=== PATIENT | male | born 1950 | race Two or more races ===

== ENCOUNTER 2018-11-28 21:39 | Inpatient (IN) | payer OTHER ==
[~2018-11-28] VITALS: Ht 180.3 cm; Wt 63.6 kg
[2018-11-29] MEDS ORDERED: SODIUM CHLORIDE 0.9% 1,000 ML IV ONE ×2 (01:45→03:30)
[2018-11-29] MEDS ORDERED: CIPROFLOXACIN 400MG/200ML 200 ML IV ONE (01:45)
[2018-11-29 02:13] LABS: Urine Bacteria MANY /hpf (None Seen); Urine Blood 2+ /uL (Negative); Urine Specific Gravity 1.007 (1.001-1.035); Urine WBC 130 /hpf (0 - 3)
[2018-11-29 02:57] LABS: Basophils # (auto) 0 uL; Basophils % (auto) 0.2 % (0.0-2.0); Eosinophils # (auto) 0 uL; Eosinophils % (auto) 0.1 % (0.0-7.0); Hematocrit 29.2 % (41.0-53.0); Hemoglobin 9.9 g/dL (13.5-17.5); Lymphocytes # (auto) 0.4 uL; Lymphocytes % (auto) 8.4 % (10.0-50.0); Mean Corpuscular Hemoglobin 32.9 pg (28.0-32.0); Mean Corpuscular Hgb Conc. 34.1 g/dL (32.0-36.0); Mean Corpuscular Volume 96.7 fL (80.0-100.0); Monocytes # (auto) 0.1 uL; Monocytes % (auto) 2.1 % (0.0-12.0); Neutrophils # (auto) 3.9 uL; Neutrophils % (auto) 89.2 % (37.0-80.0); Platelet Count (auto) 106 10^3/uL (140-450); Red Blood Cells 3.02 10^6/uL (4.5-5.90); Red Cell Distribution Width 16.2 % (11.8-14.3); White Blood Cell 4.3 10^3/uL (4.4-10.8)
[2018-11-29 03:08] LABS: Alanine Aminotransferase 15 U/L (16-61); Albumin 2.6 g/dL (3.4-5.0); Anion Gap 15 (5-15); Aspartate Aminotransferase 26 U/L (15-37); BUN/Creatinine Ratio 13.2; Calcium 7.4 mg/dL (8.5-10.1); Carbon Dioxide 17 mmol/L (21-32); Chloride 104 mmol/L (98-107); GFR African American 8 mL/min; GFR Non-African American 7 mL/min; Glucose 91 mg/dL (74-106); Sodium 136 mmol/L (136-145)
[2018-11-29 03:10] LABS: INR 1.24 (0.9-1.15); Partial Thromboplastin Time 32.7 sec (23.78-33.04); Prothrombin Time 13.1 sec (9.27-12.13)
[2018-11-29 03:23] LABS: Bilirubin, Total 0.6 mg/dL (0.2-1.0); Total Protein 5.8 g/dL (6.4-8.2)
[2018-11-29 03:26] LABS: Potassium 6.5 mmol/L (3.5-5.1)
[2018-11-29 03:27] LABS: Blood Urea Nitrogen 113 mg/dL (7-18)
[2018-11-29] MEDS ORDERED: SODIUM BICARBONATE 8.4 % INJ 50ML VIAL IV ONE (03:45)
[2018-11-29] MEDS ORDERED: DEXTROSE (50%) 50ML SYRG IV ONE (03:45)
[2018-11-29] MEDS ORDERED: InsuLIN REG 1unit/0.01ml Soln (100units/ml) IV ONE ×2 (03:45→04:45)
[2018-11-29] MEDS ORDERED: CALCIUM GLUC 4.65meq/50ml D5AE 50 ML IV ONE (03:45)
[2018-11-29] MEDS ORDERED: SODIUM POLYSTYRENE SULF 15GM/60ml SUSP or POWDER PO ONE (03:45)
[2018-11-29] MEDS: SODIUM CHLORIDE 0.9% 1,000 ML IV SCH ×3 (04:00→06:58)
[2018-11-29] MEDS ORDERED: ALBUMIN 5% 250 ML IV ONE (04:15)
[2018-11-29] MEDS ORDERED: NITROGLYCERIN 0.4 MG SL TAB SL PRN (04:15)
[2018-11-29] MEDS ORDERED: ACETAMINOPHEN 325 MG TAB PO PRN (04:15)
[2018-11-29] MEDS ORDERED: MORPHINE SULFATE 4 MG/ML SYR/VIAL IV PRN (04:15)
[2018-11-29] MEDS ORDERED: ONDANSETRON HCL 4 MG/2 ML VIAL IV PRN (04:15)
[2018-11-29] MEDS ORDERED: HYDROcodone-ACET 5/325MG TAB PO PRN (04:15)
[2018-11-29 04:35] LABS: Alkaline Phosphatase 3564 U/L (45-117)
[2018-11-29] MEDS: LEVOFLOXACIN 250MG 50 ML IV SCH (05:24)
[2018-11-29] MEDS ORDERED: InsuLIN REG 1unit/0.01ml Soln (100units/ml) ONE (05:57)
[2018-11-29 06:38] LABS: Lactic Acid w/Reflex 3.6 mmol/L (0.4-2.0)
[2018-11-29] MEDS: PANTOPRAZOLE 40 MG TAB PO SCH (07:20)
[2018-11-29 20:00] LABS: BUN/Creatinine Ratio 21.6; Potassium 4.4 mmol/L (3.5-5.1)
[2018-11-29 22:28] LABS: Urine Bacteria FEW /hpf (None Seen); Urine Blood 2+ /uL (Negative); Urine Specific Gravity 1.008 (1.001-1.035); Urine WBC 33 /hpf (0 - 3)
[2018-11-29 22:36] LABS: Protein, Urine 19.1 mg/dL (0.0-11.9)
[2018-11-30 05:34] LABS: Basophils # (auto) 0 uL; Basophils % (auto) 0.2 % (0.0-2.0); Eosinophils # (auto) 0.2 uL; Eosinophils % (auto) 1.1 % (0.0-7.0); Hematocrit 25.8 % (41.0-53.0); Hemoglobin 8.8 g/dL (13.5-17.5); Lymphocytes % (auto) 6.6 % (10.0-50.0); Mean Corpuscular Hgb Conc. 34.1 g/dL (32.0-36.0); Mean Corpuscular Volume 96.9 fL (80.0-100.0); Monocytes # (auto) 0.5 uL; Monocytes % (auto) 3.3 % (0.0-12.0); Neutrophils % (auto) 88.8 % (37.0-80.0); Platelet Count (auto) 98 10^3/uL (140-450); Red Blood Cells 2.66 10^6/uL (4.5-5.90); Red Cell Distribution Width 16.6 % (11.8-14.3); White Blood Cell 15.8 10^3/uL (4.4-10.8)
[2018-11-30 05:51] LABS: Albumin 2.1 g/dL (3.4-5.0); Calcium 7.1 mg/dL (8.5-10.1); Potassium 3.6 mmol/L (3.5-5.1)
[2018-11-30 06:06] LABS: BUN/Creatinine Ratio 29.1; Bilirubin, Total 0.5 mg/dL (0.2-1.0); Phosphorus 3.2 mg/dL (2.5-4.90); Total Protein 4.7 g/dL (6.4-8.2); Uric Acid 12.4 mg/dL (3.5-7.2)
[2018-11-30] MEDS: PANTOPRAZOLE 40 MG TAB PO SCH (06:29)
[2018-11-30] MEDS: SOD CHL 0.45% 1,000 ML IV SCH (11:39)
--- NOTE | 2018-11-30 12:52 | NUR ---
Nutrition Consult/assessment Notes please see attached link for complete assessment Est. Needs based on IBW (78 kg): 9762-2180 kcal (25-30 kcal/kgIBW), 78-85 gms pro (1.0-1.1 gms/kgBW d/t elev RFT severe hypoalb). Will continue to monitor pertinent labs and reassess nutrient needs prn Addendum: 11/30/18 at [address] Amended: Links added.
[2018-11-30] MEDS ORDERED: cefTRIAXone 1GM/50ML D5W 50 ML IV ONE (13:30)
--- NOTE | 2018-11-30 19:29 | NUR ---
Change of shift given to professor of anthropology RN. No distress noted.
--- NOTE | 2018-11-30 19:30 | NUR ---
Opening Shift Note Assumed care of patient, awake and alert. No S/S of distress/SOB or pain. Instructed on POC and to call for assist PRN, will continue to monitor for changes Q1hr and PRN.
[2018-11-30 20:00] VITALS: BP 122/76
[2018-11-30 22:00] VITALS: BP 122/76
[2018-12-01] MEDS: LEVOFLOXACIN 250MG 50 ML IV SCH (04:38)
[2018-12-01] MEDS: SOD CHL 0.45% 1,000 ML IV SCH ×3 (04:38→16:45)
[2018-12-01 05:00] VITALS: BP 128/75
[2018-12-01 06:27] LABS: Basophils # (auto) 0 uL; Basophils % (auto) 0.2 % (0.0-2.0); Eosinophils # (auto) 0.1 uL; Eosinophils % (auto) 0.5 % (0.0-7.0); Hematocrit 29.8 % (41.0-53.0); Hemoglobin 9.9 g/dL (13.5-17.5); Lymphocytes # (auto) 1.6 uL; Lymphocytes % (auto) 5.8 % (10.0-50.0); Mean Corpuscular Hemoglobin 31.9 pg (28.0-32.0); Mean Corpuscular Hgb Conc. 33.2 g/dL (32.0-36.0); Monocytes # (auto) 1.1 uL; Monocytes % (auto) 4.1 % (0.0-12.0); Neutrophils # (auto) 24.3 uL; Neutrophils % (auto) 89.4 % (37.0-80.0); Platelet Count (auto) 110 10^3/uL (140-450); Red Cell Distribution Width 16.4 % (11.8-14.3); White Blood Cell 27.2 10^3/uL (4.4-10.8)
[2018-12-01 06:51] LABS: Calcium 6.8 mg/dL (8.5-10.1); Potassium 3.1 mmol/L (3.5-5.1)
[2018-12-01 06:54] LABS: BUN/Creatinine Ratio 25.6
[2018-12-01] MEDS: PANTOPRAZOLE 40 MG TAB PO SCH (07:00)
[2018-12-01 07:08] LABS: Bilirubin, Total 0.5 mg/dL (0.2-1.0); Total Protein 5.1 g/dL (6.4-8.2)
--- NOTE | 2018-12-01 07:08 | NUR ---
Opening Shift Note Assumed care of patient, awake and alert. No S/S of distress/SOB or pain. Instructed on POC and to call for assist PRN, will continue to monitor for changes Q1hr and PRN. Patient is asleep.
[2018-12-01 07:55] VITALS: BP 133/77
--- NOTE | 2018-12-01 08:35 | NUR ---
Urologist Dr. Miky smart STAT.
--- NOTE | 2018-12-01 08:38 | NUR ---
SEVERE BLADDER PAIN 0802: Patient complained of severe abdominal pain. Assessment completed. Patient noted to have a visibly distended bladder. Patient stated that is where his pain is located. No drainage noted in purcell catheter. 0810: Bladder scan performed. >999 mL of fluid noted. 0818: Reattempted to adjust catheter. Unable to obtain drainage. Catheter flushed. No obstruction felt, purcell flushed freely. wave guide assembler notified. 0832: Dr. Miky smart. Per , remove current purcell catheter (12 fr) and insert new purcell catheter 18 fr. May insert coude catheter if needed. 0838: New purcell catheter successfully placed. 1300 mL of clear yellow urine.
[2018-12-01] MEDS: DOCUSATE SOD 100 MG CAP PO SCH ×2 (09:39→21:52)
[2018-12-01] MEDS: cefTRIAXone 1GM/50ML D5W 50 ML IV SCH (09:39)
[2018-12-01 13:19] VITALS: BP 142/77
[2018-12-01] MEDS ORDERED: POTASSIUM CHL 20 Meq TABLET PO ONE (13:30)
--- NOTE | 2018-12-01 14:53 | NUR ---
Lab called. [facility] level unavailable [facility] Results take 3-5 business days due to specimen being ordered as total PSA.
--- NOTE | 2018-12-01 16:25 | NUR ---
Dr. Bolaños at bedside. Patient agreed to have prostate biopsy performed on .
[2018-12-01 16:37] VITALS: BP 136/83
--- NOTE | 2018-12-01 17:11 | NUR ---
Left message with Laxmi Simon regarding family requesting clarification on materials provided about medical.
--- NOTE | 2018-12-01 19:19 | NUR ---
Change of shift given to night patrol inspector RN. No distress noted.
--- NOTE | 2018-12-01 19:20 | NUR ---
Hurtado catheter patent and draining.
--- NOTE | 2018-12-01 19:25 | NUR ---
Opening Shift Note Assumed care of patient, awake and alert. Product Assurance Engineer on bedside No S/S of distress/SOB or pain. Instructed on POC and to call for assist PRN, will continue to monitor for changes Q1hr and PRN.
[2018-12-01 21:56] VITALS: BP 135/80
[2018-12-02 04:53] LABS: Basophils # (auto) 0.1 uL; Basophils % (auto) 0.4 % (0.0-2.0); Eosinophils # (auto) 0.1 uL; Eosinophils % (auto) 0.6 % (0.0-7.0); Hematocrit 28.8 % (41.0-53.0); Hemoglobin 9.5 g/dL (13.5-17.5); Lymphocytes # (auto) 2.5 uL; Lymphocytes % (auto) 11.2 % (10.0-50.0); Mean Corpuscular Volume 96.9 fL (80.0-100.0); Monocytes # (auto) 1.1 uL; Monocytes % (auto) 4.7 % (0.0-12.0); Neutrophils # (auto) 18.7 uL; Neutrophils % (auto) 83.1 % (37.0-80.0); Nucleated Red Blood Cells % 0.2 %; Platelet Count (auto) 119 10^3/uL (140-450); Red Blood Cells 2.97 10^6/uL (4.5-5.90); Red Cell Distribution Width 16.1 % (11.8-14.3); White Blood Cell 22.5 10^3/uL (4.4-10.8)
[2018-12-02 05:03] LABS: Albumin 2.1 g/dL (3.4-5.0); Calcium 6.6 mg/dL (8.5-10.1); Potassium 3.3 mmol/L (3.5-5.1)
[2018-12-02 05:05] VITALS: BP 124/73
[2018-12-02 05:18] LABS: BUN/Creatinine Ratio 20.4; Bilirubin, Total 0.4 mg/dL (0.2-1.0)
[2018-12-02] MEDS: PANTOPRAZOLE 40 MG TAB PO SCH (06:36)
[2018-12-02] MEDS: SOD CHL 0.45% 1,000 ML IV SCH ×4 (06:36→21:00)
--- NOTE | 2018-12-02 07:30 | NUR ---
OPENING SHIFT NOTE: Received report from NOC RNMorris. Assumed care of patient. Patient resting comfortably in bed, denies pain. Bed in lowest position, rails x2 up and call light within reach. Updated on plan of care. Emptied 1500ml in purcell catheter bag. Will continue to monitor.
[2018-12-02 08:01] VITALS: BP 130/74
[2018-12-02] MEDS: DOCUSATE SOD 100 MG CAP PO SCH ×2 (10:18→21:44)
[2018-12-02] MEDS: cefTRIAXone 1GM/50ML D5W 50 ML IV SCH (10:18)
[2018-12-02 11:57] VITALS: BP 144/92
--- NOTE | 2018-12-02 14:39 | NUR ---
BENITEZ: 900ml emptied.
[2018-12-02 16:44] VITALS: BP 132/76
--- NOTE | 2018-12-02 18:00 | NUR ---
BENITEZ: 900ml emptied
--- NOTE | 2018-12-02 19:08 | NUR ---
CLOSING SHIFT NOTE: Report given to NOC Fish LONDONO. Endorsed care of patient. Patient continues to have IVF of 0.45 NS infusing at 150ml/hr. Patient denies pain.
[2018-12-02 22:00] VITALS: BP 126/78
[2018-12-03] MEDS: SOD CHL 0.45% 1,000 ML IV SCH (02:05)
[2018-12-03] MEDS: LEVOFLOXACIN 250MG 50 ML IV SCH (04:39)
[2018-12-03 05:00] VITALS: BP 134/84
[2018-12-03 05:52] LABS: Hematocrit 25.8 % (41.0-53.0); Hemoglobin 8.7 g/dL (13.5-17.5); Mean Corpuscular Hemoglobin 32.9 pg (28.0-32.0); Mean Corpuscular Hgb Conc. 33.6 g/dL (32.0-36.0); Mean Corpuscular Volume 97.7 fL (80.0-100.0); Platelet Count (auto) 125 10^3/uL (140-450); Red Blood Cells 2.63 10^6/uL (4.5-5.90); Red Cell Distribution Width 16.3 % (11.8-14.3); White Blood Cell 15.5 10^3/uL (4.4-10.8)
[2018-12-03 06:05] LABS: INR 1.06 (0.9-1.15); Partial Thromboplastin Time 25.4 sec (23.78-33.04); Prothrombin Time 11.3 sec (9.27-12.13)
[2018-12-03 06:25] LABS: Potassium 3.6 mmol/L (3.5-5.1)
[2018-12-03] MEDS: PANTOPRAZOLE 40 MG TAB PO SCH (06:27)
[2018-12-03 06:37] LABS: BUN/Creatinine Ratio 16.9; Calcium 7.2 mg/dL (8.5-10.1)
[2018-12-03 06:51] LABS: Blast Cells 0; Metamyelocytes % 0; Myelocytes % 0; Promyelocytes % 0; Reactive Lymphocytes 0
--- NOTE | 2018-12-03 07:30 | NUR ---
OPENING SHIFT NOTE: Received report from NOC RNFish. Assumed care of patient. Patient resting comfortably in bed, denies pain. Bed in lowest position, rails x2 up and call light within reach. Updated on plan of care. Will continue to monitor.
[2018-12-03 07:45] LABS: Band Neutrophils % (manual) 4; Basophils % (manual) 1 (0.0-2.0); Eosinophils % (manual) 1 (0-7); Lymphocytes % (manual) 31 (10.0-50.0); Monocytes % (manual) 7 (0-12)
[2018-12-03 08:39] VITALS: BP 131/87
[2018-12-03] MEDS: DOCUSATE SOD 100 MG CAP PO SCH ×2 (09:49→22:00)
[2018-12-03] MEDS: D5W 5% 1,000 ML IV SCH ×2 (09:49→17:00)
[2018-12-03] MEDS: cefTRIAXone 1GM/50ML D5W 50 ML IV SCH (09:49)
[2018-12-03 13:00] VITALS: BP 125/77
[2018-12-03 16:53] VITALS: BP 130/74
--- NOTE | 2018-12-03 19:16 | NUR ---
CLOSING SHIFT NOTE: Report given to NOC Fish LONDONO. Endorsed care of patient.
[2018-12-03 22:00] VITALS: BP 133/83
[2018-12-04] MEDS: D5W 5% 1,000 ML IV SCH ×5 (03:40→21:30)
[2018-12-04 05:02] VITALS: BP 132/76
--- NOTE | 2018-12-04 05:23 | NUR ---
Shift Note The patient had an uneventful night, tolerated treatments well, had no complaints. The patient still appears to look weak but he is able to complete most ADLs. Prepared the patient for the Prostate Needle Biopsy this morning as the CHG Bath was completed, consents signed, pre op teaching completed as well. The patient was very concerned about pain after the procedure. He has been NPO since midnight. Will continue to monitor.
[2018-12-04 06:26] LABS: Potassium 3.6 mmol/L (3.5-5.1)
[2018-12-04 06:30] LABS: BUN/Creatinine Ratio 11.4; Calcium 7.2 mg/dL (8.5-10.1)
[2018-12-04 06:31] LABS: Hemoglobin 9.4 g/dL (13.5-17.5); Mean Corpuscular Hemoglobin 32.6 pg (28.0-32.0); Mean Corpuscular Hgb Conc. 33.5 g/dL (32.0-36.0); Mean Corpuscular Volume 97.2 fL (80.0-100.0); Platelet Count (auto) 151 10^3/uL (140-450); Red Blood Cells 2.88 10^6/uL (4.5-5.90); White Blood Cell 13.5 10^3/uL (4.4-10.8)
[2018-12-04] MEDS: PANTOPRAZOLE 40 MG TAB PO SCH (06:33)
[2018-12-04 06:55] LABS: Basophils % (manual) 0 (0.0-2.0); Blast Cells 0; Metamyelocytes % 0; Myelocytes % 0; Promyelocytes % 0; Reactive Lymphocytes 0
--- NOTE | 2018-12-04 07:40 | NUR ---
About 2,000 ml of clear, yellowish urine emptied from the Hurtado catheter bag.
--- NOTE | 2018-12-04 07:55 | NUR ---
Received a call from Pre Op RN Pia to bring the patient to Pre Op in 15 minutes.
[2018-12-04 08:00] VITALS: BP 127/77
--- NOTE | 2018-12-04 08:20 | NUR ---
Patient transported via bed to Pre Op. Patient awake, oriented x4, no acute distress noted. Hurtado catheter draining clear, yellowish urine, IV lines intact and patent. Endorsed patient to Pre Op RN Pia.
[2018-12-04] MEDS ORDERED: CIPROFLOXACIN 400MG/200ML 200 ML IV ONE (08:27)
[2018-12-04] MEDS ORDERED: MIDAZOLAM HCL 1MG/1ML-2 ML VIAL ONE ×2 (08:39→08:45)
[2018-12-04] MEDS ORDERED: diphenhdrAMINE HCL 50 MG/1 ML VL ONE (08:45)
[2018-12-04] MEDS ORDERED: PROPOFOL 10 MG/ML 20 ML IV ONE (08:45)
[2018-12-04] MEDS ORDERED: HYDROmorphone HCL 2 MG/ML VL IV PRN (08:45)
[2018-12-04] MEDS ORDERED: NALOXONE HCL 0.4 MG/ML VIAL IV PRN (08:45)
[2018-12-04] MEDS ORDERED: ONDANSETRON HCL 4 MG/2 ML VIAL IV ONE (08:45)
[2018-12-04] MEDS ORDERED: GLYCOPYRROLATE 0.2 MG/ML 1ML VIAL ONE (08:45)
[2018-12-04] MEDS ORDERED: LIDOCAINE 2% (LOCAL ANESTH.) PF 5ml SDV ONE (08:45)
[2018-12-04] MEDS: cefTRIAXone 1GM/50ML D5W 50 ML IV SCH (09:00)
[2018-12-04 09:20] LABS: Band Neutrophils % (manual) 2; Eosinophils % (manual) 4 (0-7); Lymphocytes % (manual) 14 (10.0-50.0); Monocytes % (manual) 7 (0-12)
--- NOTE | 2018-12-04 09:40 | NUR ---
Received report from SUPPLY SERVICE WORKER that patient had the biopsy done, on Regular Diet, Okay to go home with Hurtado, follow up with Urology in two weeks.
--- NOTE | 2018-12-04 09:50 | NUR ---
Patient back to room from PACU. Patient asked for water. Elevated the head of the bed. No nausea noted. Bed alarm on. Discharge on urinary leg bag.
[2018-12-04] MEDS: DOCUSATE SOD 100 MG CAP PO SCH ×2 (10:48→22:00)
--- NOTE | 2018-12-04 10:48 | NUR ---
Dr. Solis came over. ordered to continue with the Dextrose 5% drip as ordered.
--- NOTE | 2018-12-04 11:00 | NUR ---
About 600 ml of clear, yellowish urine emptied from the Hurtado catheter.
[2018-12-04 13:00] VITALS: BP 137/71
--- NOTE | 2018-12-04 14:13 | NUR ---
Nutrition Follow-up Notes Wt.: 98.2 kg based on bed scale as of yesterday. Requested RN to recheck and record pt's actual body based on bed scale. Pt's s/p Transrectal ultrasound-guided prostate needle biopsy earlier, watching TV, denies any discomfort when rounded this morning. Pt states that he used to weigh over 145 lbs, most likely lost weight r/t his medical condition (CA). 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 Pt's NPO earlier, noted to resume Regular diet today. Encouraged to increase food intake through small frequent meals as tolerated. Est. Needs based on IBW (78 kg): 2537-7282 kcal (25-30 kcal/kgIBW), 78-85 gms pro (1.0-1.1 gms/kgBW d/t elev RFT severe hypoalb). Will continue to monitor pertinent labs and reassess nutrient needs prn Labs: Na 152 H, Cl 120 H, Ca 7.2 L ; 12/02/18 AST 13 L, ALT 9 L, ALP 2045 H, Tpro 5.0 L, Alb 2.1 L Skin: Alonzo scale 19, low risk, skin intact per medical office supervisor. GI: Pt had 3x BM 12/01/18 per medical office supervisor. PES: Increased nutrient needs r/t current/chronic medical condition aeb with cancer and loosing wt with BMI of 17.0 kgm2 Altered nutrition related lab values r/t current/chronic medical condition aeb elev RFT hyperurecemia, severe hypoalb Will continue to monitor PO intake, skin status, pertinent labs and weight trend. F/u in 3 to 5 days. Rec.: 1.) Consider Ensure Enlive 1 carton TID and Prostat 1 pkt BID. 2.) Continue close supervision during meals. 3.) Refer pt to RD for further nutrition education and weight monitoring upon discharge. 4.) Continue current plan of care.
[2018-12-04 17:00] VITALS: BP 121/74
--- NOTE | 2018-12-04 17:40 | NUR ---
Lisa Tom called back. is aware of the biopsy done today as per Ping Gardner (for Urology); Dr. Solis (for Nephrology) has orders for Dextrose 5% drip at 200 ml/hr. No discharge orders today. Patient made aware.
--- NOTE | 2018-12-04 17:50 | NUR ---
About 500 ml of clear, yellowish urine noted in the Hurtado catheter bag.
--- NOTE | 2018-12-04 18:20 | NUR ---
About 700 ml of clear, yellowish urine emptied from the Hurtado catheter bag.
[2018-12-04] MEDS: FREE WATER PO SCH (18:27)
[2018-12-04 22:00] VITALS: BP 119/60
[2018-12-04 22:59] LABS: BUN/Creatinine Ratio 12.9; Calcium 7.1 mg/dL (8.5-10.1); Potassium 3.7 mmol/L (3.5-5.1)
[2018-12-04] MEDS ORDERED: HYDROcodone-ACET 5/325MG TAB PO PRN (23:00)
[2018-12-05] MEDS: D5W 5% 1,000 ML IV SCH ×3 (03:32→11:32)
[2018-12-05 05:00] VITALS: BP 128/63
[2018-12-05] MEDS: LEVOFLOXACIN 250MG 50 ML IV SCH (05:07)
[2018-12-05] MEDS: FREE WATER PO SCH ×3 (06:00→11:40)
[2018-12-05] MEDS: PANTOPRAZOLE 40 MG TAB PO SCH (06:33)
--- NOTE | 2018-12-05 06:52 | NUR ---
Shift Note The patient had an uneventful night, tolerated treatments well, had no complaints. The patient had strict orders to run IV fluids at 200ml/hr and drink 400mls free water Q4hrs. The patient accomplished both just fine. His right forearm IV blew and replaced it with another Right forearm IV 18g to better maintain the fluids. Will continue to monitor.
[2018-12-05 07:45] LABS: Hematocrit 29.1 % (41.0-53.0); Hemoglobin 9.7 g/dL (13.5-17.5); Mean Corpuscular Hemoglobin 32.1 pg (28.0-32.0); Mean Corpuscular Hgb Conc. 33.4 g/dL (32.0-36.0); Mean Corpuscular Volume 96.2 fL (80.0-100.0); Platelet Count (auto) 169 10^3/uL (140-450); Red Blood Cells 3.03 10^6/uL (4.5-5.90); Red Cell Distribution Width 15.4 % (11.8-14.3); White Blood Cell 14.2 10^3/uL (4.4-10.8)
[2018-12-05 07:57] LABS: Basophils % (manual) 0 (0.0-2.0); Blast Cells 0; Metamyelocytes % 0; Myelocytes % 0; Promyelocytes % 0; Reactive Lymphocytes 0
[2018-12-05 08:02] LABS: BUN/Creatinine Ratio 9.5; Potassium 3.6 mmol/L (3.5-5.1)
[2018-12-05 09:00] VITALS: BP 131/78
[2018-12-05 09:43] LABS: Band Neutrophils % (manual) 8; Eosinophils % (manual) 1 (0-7); Lymphocytes % (manual) 21 (10.0-50.0); Monocytes % (manual) 8 (0-12)
[2018-12-05] MEDS: DOCUSATE SOD 100 MG CAP PO SCH (10:07)
[2018-12-05] MEDS ORDERED: Ensure Enlive Chocolate 8oz Bottle PO SCH (12:00)
[2018-12-05 13:02] VITALS: BP 106/70
[2018-12-05] MEDS ORDERED: Pro-Stat SF 30ml Vanilla PO SCH (18:00)
== END 2018-12-05 15:30 | disposition home or self-care (01) | DRG 722 ==
LOC: ER 21:39 → TELE 11-29 04:14 → TELE-EAST 11-30 17:19 → EAST 11-30 19:56
PROVIDERS: ADMIT Nurse Practitioner; ATTEND Internal Medicine
PROC: 0VB03ZX Excision of Prostate, Percutaneous Approach, Diagnostic (ICD-10-PCS; principal; 2018-12-04 08:26)
DX: C61 Malignant neoplasm of prostate (principal); E43 Unspecified severe protein-calorie malnutrition; C79.51 Secondary malignant neoplasm of bone; N17.9 Acute kidney failure, unspecified; J90 Pleural effusion, not elsewhere classified; J98.11 Atelectasis; R18.8 Other ascites; E87.0 Hyperosmolality and hypernatremia; N39.0 Urinary tract infection, site not specified; Z68.1 Body mass index [BMI] 19.9 or less, adult; D69.6 Thrombocytopenia, unspecified; E87.5 Hyperkalemia; N18.9 Chronic kidney disease, unspecified; I70.0 Atherosclerosis of aorta; N13.9 Obstructive and reflux uropathy, unspecified; B96.20 Unspecified Escherichia coli [E. coli] as the cause of diseases classified elsewhere; D63.8 Anemia in other chronic diseases classified elsewhere
CPT/HCPCS: 36415; 51702; 71045; 74176; 78306; 80048; 80053; 81001; 82570; 82962; 83605; 83880; 84100; 84132; 84154; 84156; 84300; 84443; 84484; 84550; 85007; 85025; 85027; 85610; 85730; 87040; 87086; 87088; 87186; 87340; 93005; 96361; 96365; 96375; G0378; J0610; J0696; J1815; J2001; J2250; J2704; J7042